=== PATIENT | female | born 1965 | race Caucasian/White ===

== ENCOUNTER 2017-02-20 21:30 | Emergency (ER) | payer MEDICAID ==
[~2017-02-20] VITALS: Ht 165.1 cm; Wt 69.8 kg
[2017-02-20 21:51] VITALS: BP 143/73; Ht 165.1 cm; Wt 69.8 kg
== END 2017-02-20 23:34 | disposition left against medical advice (07) ==
LOC: ED 21:30
DX: Z53.21 Procedure and treatment not carried out due to patient leaving prior to being seen by health care provider (principal)

== ENCOUNTER 2017-10-07 16:10 | Inpatient (IN) | payer OTHER ==
[~2017-10-07] VITALS: Ht 162.6 cm; Wt 57.7 kg
[2017-10-07 17:50] LABS: BASOPHIL % 0.5 % (0-2); PLATELET COUNT 281 x10^3mcL (130-400)
[2017-10-07 17:52] LABS: RED CELL DISTRIBUTION WIDTH 16.6 % (11.5-14.5)
[2017-10-07 18:09] LABS: CALCIUM 9.6 mg/dL (8.5-10.1); CARBON DIOXIDE 27.3 mmol/L (21-32); CHLORIDE SERUM 107 mmol/L (98-107); CREATININE SERUM 0.6 mg/dL (0.6-1.0); GFR1 > 60 mL/min; GLUCOSE SERUM 98 mg/dL (74-106); POTASSIUM SERUM 3.6 mmol/L (3.5-5.1); SODIUM SERUM 145 mmol/L (136-145)
[2017-10-07 18:19] LABS: microscopic required? NO
[2017-10-07 18:21] LABS: ALKALINE PHOSPHATASE 255 U/L (46-116); ALT/SGPT 82 U/L (14-59); AST/SGOT 63 U/L (15-37); BILIRUBIN TOTAL 0.34 mg/dL (0.20-1.00); FREE T4 1.05 ng/dL (0.76-1.46); LIPASE 215 IU/L (73-393); TOTAL PROTEIN, SERUM 8.2 g/dL (6.4-8.2)
[2017-10-07 18:57] LABS: UA SPECIFIC GRAVITY <=1.005 (1.005-1.035); urine erythrocyte NEGATIVE (NEGATIVE)
[2017-10-07] MEDS ORDERED: ZOF4 PO (22:00)
[2017-10-07] MEDS ORDERED: PROTONIX40 MG PO (22:01)
[2017-10-07] MEDS ORDERED: WELLBUTRIN XL150 M1 PO (22:02)
[2017-10-07] MEDS ORDERED: ACETAMINOPHEN &1 TA1 PO (22:04)
[2017-10-07] MEDS ORDERED: FENTANYL TR12 MCG/HR TD (22:05)
[2017-10-07 22:41] VITALS: BP 147/79
[2017-10-08 04:30] VITALS: BP 147/79
[2017-10-08 05:55] VITALS: BP 129/67
[2017-10-08 08:06] LABS: BASOPHIL % 0.4 % (0-2); PLATELET COUNT 288 x10^3mcL (130-400)
[2017-10-08 08:11] LABS: RED CELL DISTRIBUTION WIDTH 16.3 % (11.5-14.5)
[2017-10-08 08:17] LABS: CALCIUM 9.1 mg/dL (8.5-10.1); CARBON DIOXIDE 28.5 mmol/L (21-32); CHLORIDE SERUM 104 mmol/L (98-107); CREATININE SERUM 0.5 mg/dL (0.6-1.0); GFR1 > 60 mL/min; GLUCOSE SERUM 102 mg/dL (74-106); MAGNESIUM 1.6 mg/dL (1.8-2.4); PHOSPHOROUS 4.2 mg/dL (2.5-4.9); POTASSIUM SERUM 3.7 mmol/L (3.5-5.1); SODIUM SERUM 141 mmol/L (136-145)
[2017-10-08 08:22] LABS: CHOLESTEROL/HDL RATIO 3.7; MAGNESIUM 1.6 mg/dL (1.8-2.4); PHOSPHOROUS 4.2 mg/dL (2.5-4.9)
[2017-10-08 09:30] VITALS: BP 139/78
[2017-10-08 12:49] VITALS: BP 142/88
[2017-10-08 17:18] VITALS: BP 118/67
[2017-10-08 20:57] VITALS: BP 104/72
[2017-10-09 05:44] VITALS: BP 100/67
[2017-10-09 07:44] VITALS: BP 102/61
[2017-10-09 11:50] VITALS: BP 116/68
[2017-10-09] MEDS ORDERED: XAN25 PO (14:36)
[2017-10-09] MEDS ORDERED: LEVAQUIN750 MG PO (14:41)
[2017-10-09] MEDS ORDERED: FLA500 PO (14:42)
[2017-10-09] MEDS ORDERED: AMB5 PO (14:44)
[2017-10-09 15:53] VITALS: BP 116/68
== END 2017-10-09 17:12 | disposition home or self-care (01) | DRG 139 ==
LOC: ED 16:10 → MU 22:00 → DU 22:00 → MU 22:41 → DU 22:44
PROVIDERS: Emergency Medicine; Internal Medicine
DX: J18.9 Pneumonia, unspecified organism (principal); E44.0 Moderate protein-calorie malnutrition; J91.8 Pleural effusion in other conditions classified elsewhere; E83.42 Hypomagnesemia; I48.91 Unspecified atrial fibrillation; M94.0 Chondrocostal junction syndrome [Tietze]; F41.9 Anxiety disorder, unspecified; R74.0 Nonspecific elevation of levels of transaminase and lactic acid dehydrogenase [LDH]; Z93.3 Colostomy status; Z86.73 Personal history of transient ischemic attack (TIA), and cerebral infarction without residual deficits; Z83.3 Family history of diabetes mellitus; Z88.0 Allergy status to penicillin; E78.00 Pure hypercholesterolemia, unspecified; F43.23 Adjustment disorder with mixed anxiety and depressed mood; J44.9 Chronic obstructive pulmonary disease, unspecified
CPT/HCPCS: 83880; 84439; 94150; 97110-GP; 97116-GP; 97530-GP; J1956; J2270; J2405; J7030; J7620; Q0092; Q0162; Q9967

== ENCOUNTER 2017-11-12 12:45 | Emergency (ER) | payer OTHER ==
[~2017-11-12 12:45] MED LIST: ACETAMINOPHEN &1 TA1 PO; AMB5 PO; FENTANYL TR12 MCG/HR TD; FLA500 PO; LEVAQUIN750 MG PO; PROTONIX40 MG PO; WELLBUTRIN XL150 M1 PO; XAN25 PO; ZOF4 PO
[2017-11-12 12:54] VITALS: Ht 162.6 cm
[2017-11-12 13:51] LABS: BASOPHIL % 0.5 % (0-2); PLATELET COUNT 246 x10^3mcL (130-400); RED CELL DISTRIBUTION WIDTH 13.8 % (11.5-14.5)
[2017-11-12 14:08] LABS: T3 TOTAL 0.93 ng/mL
[2017-11-12 14:21] LABS: ALBUMIN 3.4 g/dL (3.4-5.0); ALKALINE PHOSPHATASE 108 U/L (46-116); ALT/SGPT 74 U/L (14-59); AST/SGOT 52 U/L (15-37); CALCIUM 9.6 mg/dL (8.5-10.1); CARBON DIOXIDE 25.9 mmol/L (21-32); CHLORIDE SERUM 105 mmol/L (98-107); CREATININE SERUM 0.7 mg/dL (0.6-1.0); GFR1 > 60 mL/min; GLUCOSE SERUM 105 mg/dL (74-106); POTASSIUM SERUM 3.5 mmol/L (3.5-5.1); SODIUM SERUM 140 mmol/L (136-145)
[2017-11-12 14:26] LABS: TOTAL PROTEIN, SERUM 8.3 g/dL (6.4-8.2)
[2017-11-12 14:31] LABS: microscopic required? NO
[2017-11-12 14:40] LABS: CK-MB 0.5 ng/mL (0-3.6)
[2017-11-12 14:41] LABS: C REACTIVE PROTEIN < 0.2 mg/dL (<=0.9)
[2017-11-12 14:42] LABS: UA SPECIFIC GRAVITY <=1.005 (1.005-1.035); urine erythrocyte NEGATIVE (NEGATIVE)
[2017-11-12 14:53] LABS: ERYTHROCYTE SED RATE 35 mm/hr (0-30)
[2017-11-12 15:21] LABS: FREE T4 0.89 ng/dL (0.76-1.46); FREE THYROXINE INDEX 2.9 ug/dL (1.4-4.5); T4(THYROXINE) 8.9 ug/dL (4.7-13.3)
[2017-11-12 16:59] VITALS: BP 107/68
== END 2017-11-12 16:59 | disposition home or self-care (01) ==
LOC: ED 12:45
PROVIDERS: Specialist
DX: R10.31 Right lower quadrant pain (principal); R10.32 Left lower quadrant pain; R10.84 Generalized abdominal pain; R19.7 Diarrhea, unspecified; R11.0 Nausea; Z93.3 Colostomy status; F41.9 Anxiety disorder, unspecified; Z90.49 Acquired absence of other specified parts of digestive tract; Z98.890 Other specified postprocedural states; Z88.0 Allergy status to penicillin
CPT/HCPCS: 36600; 84439; 87046; 87046-59; J1885; J2405; J3010; J7030; Q9967